=== PATIENT | female | born 1955 | race African-American/Black ===

== ENCOUNTER 2016-07-10 01:37 | Observation (INO) | payer OTHER ==
[~2016-07-10] VITALS: Ht 175.3 cm; Wt 86.6 kg
[~2016-07-10 01:37] MED LIST: AMLODIPINE-BEN1 EAC3 PO; APRESOLINE50 MG PO; ASPIR-LOW81 MG PO; BENICAR20 MG PO; BENTYL20 MG PO; CLONIDINE1 EAC2 TD; COZAAR100 MG PO; DICYCLOMINE HCL20 MG PO; FLEXERIL10 MG PO; HYDROCODONE; HYZAAR 100-251 EACH PO; LAMISIL250 MG PO; LEVOFLOXACIN500 MG PO; LIDODERM 5% P1 PATCH TD; LIPITOR20 MG PO; LIPITOR40 MG PO; NORVASC10 MG PO; PANTOPRAZOLE SO40 MG PO; POTASSIUM CHLO20 ME1 PO; PREDNISONE10 MG PO; PRILOSEC20 MG PO; PRILOSEC40 MG PO; REGLAN5 MG PO; TRAMADOL HCL50 MG PO; VALIUM5 MG PO
[2016-07-10 02:14] LABS: HEMATOCRIT 45.9 % (36.0-46.0); MCH 30.1 PG (29.0-34.0); MCHC 33.3 G/DL (30.0-36.0); MCV 90.4 FL (83-99); MEAN PLAT.VOLUME 10.9 uM^3 (9.5-12.4); PLATELET COUNT 160 K/uL (156-360); RBC DIS.WIDTH-CV 15.1 % (11.8-14.6); RBC DIS.WIDTH-SD 48.7 % (39-53); RED BLOOD COUNT 5.08 M/uL (3.80-5.20)
[2016-07-10 02:25] LABS: PTT 28.8 (25-32)
[2016-07-10 02:26] LABS: CHLORIDE 109 mEq/L (99-109); POTASSIUM 3.7 mEq/L (3.7-5.4); SODIUM 143 mEq/L (136-147)
[2016-07-10 02:28] LABS: GLUCOSE 108 mg/dL (70-99)
[2016-07-10 02:29] LABS: ANION GAP 11 MEQ/L (2-14)
[2016-07-10 02:30] LABS: TOTAL BILIRUBIN 0.3 mg/dL (0.0-1.0)
[2016-07-10 02:32] LABS: ALKALINE PHOSPHATASE 99 IU/L (3-129); GFR ESTIMATE (CALCULATED) > 59 mL/min/
[2016-07-10 02:33] LABS: DIRECT BILIRUBIN 0.1 mg/dL (0.0-0.3); UREA NITROGEN (BUN) 17 mg/dL (9-23)
[2016-07-10 02:35] LABS: LIPASE 15 U/L (1.0-51.0)
[2016-07-10 02:37] LABS: TROP-I INTERPRETATION NEGATIVE; TROPONIN-I < 0.01 ng/mL (0.0-0.30)
[2016-07-10 04:39] LABS: ADD MIUA? YES; BILIRUBIN NEGATIVE; BLOOD MODERATE; COLOR STRAW ((YELLOW)); GLUCOSE (STRIP) NEGATIVE; KETONES NEGATIVE; LEUKOCYTES NEGATIVE; NITRITE NEGATIVE; PROTEIN (STRIP) 30; SPECIFIC GRAVITY 1.025 (1.000-1.030); UROBILINOGEN 0.2 MG/DL (0.2-1.0)
[2016-07-10 04:51] LABS: BACTERIA NONE SEEN /HPF; EPITHELIAL CELLS 1+ /HPF; MUCUS TRACE /LPF; UCUL ADDED? NO; WHITE BLOOD CELLS NONE SEEN /HPF (0-5)
[2016-07-10] MEDS ORDERED: LOPRESSOR25 MG PO (08:47)
[2016-07-10] MEDS ORDERED: HYDROMORPHONE HC2 MG PO (08:48)
[2016-07-10] MEDS ORDERED: MONTELUKAST SOD10 MG PO (08:55)
[2016-07-10] MEDS ORDERED: DICLOFENAC SODI25 MG PO (08:59)
[2016-07-10] MEDS ORDERED: NEXIUM20 MG PO (09:01)
[2016-07-10] MEDS ORDERED: EXCEDRIN EXTRA1 EACH PO (09:02)
[2016-07-10 09:27] LABS: HEMATOCRIT 45.5 % (36.0-46.0); MCH 30.3 PG (29.0-34.0); MCHC 33.6 G/DL (30.0-36.0); MCV 90.1 FL (83-99); MEAN PLAT.VOLUME 10.5 uM^3 (9.5-12.4); PLATELET COUNT 171 K/uL (156-360); RBC DIS.WIDTH-CV 14.9 % (11.8-14.6); RBC DIS.WIDTH-SD 48.4 % (39-53); RED BLOOD COUNT 5.05 M/uL (3.80-5.20)
[2016-07-10 09:43] LABS: CHLORIDE 108 mEq/L (99-109); POTASSIUM 3.6 mEq/L (3.7-5.4); SODIUM 142 mEq/L (136-147)
[2016-07-10 09:45] LABS: GLUCOSE 106 mg/dL (70-99)
[2016-07-10 09:46] LABS: ANION GAP 8 MEQ/L (2-14)
[2016-07-10 09:47] LABS: TROP-I INTERPRETATION NEGATIVE; TROPONIN-I < 0.01 ng/mL (0.0-0.30)
[2016-07-10 09:48] LABS: ALKALINE PHOSPHATASE 97 IU/L (3-129)
[2016-07-10 09:49] LABS: GFR ESTIMATE (CALCULATED) > 59 mL/min/; TOTAL BILIRUBIN 0.5 mg/dL (0.0-1.0)
[2016-07-10 09:50] LABS: UREA NITROGEN (BUN) 13 mg/dL (9-23)
[2016-07-10 10:44] LABS: HDL CHOLESTEROL 31 MG/DL (Desirable>=50); LDL CHOLESTEROL 170 mg/dL (Desirable<100); NON-HDL CHOLESTEROL 209 mg/dL (Desirable<160); TOTAL CHOLESTEROL 240 mg/dL (Desirable<200); TRIGLYCERIDES 196 MG/DL (Normal: <150)
[2016-07-10 15:49] LABS: TROP-I INTERPRETATION NEGATIVE; TROPONIN-I 0.01 ng/mL (0.0-0.30)
[2016-07-10 16:24] VITALS: BP 166/77
[2016-07-10 19:00] VITALS: BP 159/77
[2016-07-11] VITALS (7 sets, daily range): BP systolic 131–182; BP diastolic 70–88
[2016-07-11] MEDS ORDERED: NICOTINE PATCH1 EAC2 TD (08:17)
[2016-07-11] MEDS ORDERED: ATORVASTATIN CA40 MG PO (08:17)
[2016-07-11] MEDS ORDERED: PANTOPRAZOLE SO40 MG PO (08:17)
[2016-07-11 09:04] LABS: HEMATOCRIT 45.7 % (36.0-46.0); MCH 31.5 PG (29.0-34.0); MCHC 34.4 G/DL (30.0-36.0); MCV 91.8 FL (83-99); MEAN PLAT.VOLUME 11.3 uM^3 (9.5-12.4); PLATELET COUNT 168 K/uL (156-360); RBC DIS.WIDTH-SD 50.4 % (39-53); RED BLOOD COUNT 4.98 M/uL (3.80-5.20); WHITE BLOOD COUNT 10.1 K/uL (4.1-10.2)
[2016-07-11 09:25] LABS: ANION GAP 8 MEQ/L (2-14); CHLORIDE 108 MEQ/L (99-109); GFR ESTIMATE (CALCULATED) > 59 mL/min/; GLUCOSE 114 mg/dL (70-99); MAGNESIUM 2.1 mg/dl (1.3-2.7); POTASSIUM 4.2 MEQ/L (3.7-5.4); SAMPLE HEMOLYSIS CHECK 0; SAMPLE ICTERIC CHECK 0; SAMPLE LIPEMIA CHECK 0; SODIUM 141 MEQ/L (136-147); UREA NITROGEN (BUN) 17 mg/dL (9-23)
[2016-07-11] MEDS ORDERED: AMLODIPINE BESY10 MG PO (11:47)
== END 2016-07-11 18:16 | disposition home or self-care (01) ==
LOC: EME 01:37 → 5WEST 06:09 → EDOF 06:09 → 5WEST 15:35
PROVIDERS: Emergency Medicine; Internal Medicine; Physician Assistant
DX: R07.9 Chest pain, unspecified (principal); I16.0 Hypertensive urgency; I10 Essential (primary) hypertension; R10.13 Epigastric pain; R94.31 Abnormal electrocardiogram [ECG] [EKG]; K21.9 Gastro-esophageal reflux disease without esophagitis; G89.29 Other chronic pain; M54.9 Dorsalgia, unspecified; E78.5 Hyperlipidemia, unspecified; F17.210 Nicotine dependence, cigarettes, uncomplicated; Z82.5 Family history of asthma and other chronic lower respiratory diseases; Z83.79 Family history of other diseases of the digestive system; Z79.82 Long term (current) use of aspirin
CPT/HCPCS: 70450; 71020; 71275; 80048; 80053; 80061; 80076; 81003; 83690; 83735; 83880; 84484; 85027; 85610; 85730; 93005; G0378; J0360; J1644; J2270

== ENCOUNTER 2017-05-05 15:34 | Emergency (ER) | payer OTHER ==
[~2017-05-05] VITALS: Ht 175.3 cm; Wt 84.5 kg
[~2017-05-05 15:34] MED LIST changes: +AMLODIPINE BESY10 MG PO; +ATORVASTATIN CA40 MG PO; +DICLOFENAC SODI25 MG PO; +EXCEDRIN EXTRA1 EACH PO; +HYDROMORPHONE HC2 MG PO; +LOPRESSOR25 MG PO; +MONTELUKAST SOD10 MG PO; +NEXIUM20 MG PO; +NICOTINE PATCH1 EAC2 TD
[2017-05-05 16:15] LABS: HEMATOCRIT 45.3 % (36.0-46.0); MCH 30.8 PG (29.0-34.0); MCHC 33.6 G/DL (30.0-36.0); MCV 91.9 FL (83-99); MEAN PLAT.VOLUME 10.6 uM^3 (9.5-12.4); PLATELET COUNT 183 K/uL (156-360); RBC DIS.WIDTH-CV 14.9 % (11.8-14.6); RED BLOOD COUNT 4.93 M/uL (3.80-5.20)
[2017-05-05 16:26] LABS: CHLORIDE 111 mEq/L (99-109); POTASSIUM 3.5 mEq/L (3.7-5.4); SODIUM 143 mEq/L (136-147)
[2017-05-05 16:28] LABS: GLUCOSE 114 mg/dL (70-99)
[2017-05-05 16:29] LABS: ANION GAP 8 MEQ/L (2-14)
[2017-05-05 16:30] LABS: TOTAL BILIRUBIN 0.3 mg/dL (0.0-1.0)
[2017-05-05 16:32] LABS: ALKALINE PHOSPHATASE 93 IU/L (3-129); GFR ESTIMATE (CALCULATED) 54 mL/min/
[2017-05-05 16:33] LABS: UREA NITROGEN (BUN) 14 mg/dL (9-23)
[2017-05-05 17:25] LABS: ADD MIUA? YES; BILIRUBIN NEGATIVE; BLOOD MODERATE; COLOR YELLOW ((YELLOW)); GLUCOSE (STRIP) NEGATIVE; KETONES NEGATIVE; LEUKOCYTES TRACE; NITRITE NEGATIVE; PROTEIN (STRIP) 30
[2017-05-05 17:26] LABS: TROP-I INTERPRETATION NEGATIVE; TROPONIN-I < 0.01 ng/mL (0.0-0.30)
[2017-05-05 17:29] LABS: BACTERIA NONE SEEN /HPF; EPITHELIAL CELLS 1+ /HPF; HYALINE CASTS 0-5 /LPF; MUCUS TRACE /LPF; UCUL ADDED? NO; WHITE BLOOD CELLS 0-5 /HPF (0-5)
[2017-05-05 18:38] LABS: LIPASE 32 U/L (1.0-51.0)
[2017-05-05 19:11] VITALS: BP 168/98
== END 2017-05-05 19:13 | disposition home or self-care (01) ==
LOC: EME 15:34
PROVIDERS: Nurse Practitioner Family
DX: R10.13 Epigastric pain (principal); K58.0 Irritable bowel syndrome with diarrhea; R11.0 Nausea; R00.1 Bradycardia, unspecified; Z87.442 Personal history of urinary calculi; Z90.49 Acquired absence of other specified parts of digestive tract; I10 Essential (primary) hypertension; F17.200 Nicotine dependence, unspecified, uncomplicated
CPT/HCPCS: 80053; 81003; 83690; 84484; 85027; 93005; 99281; 99285; J2405; J7030